=== PATIENT | male | born 1975 | race Caucasian/White ===

== ENCOUNTER 2025-06-12 20:24 | Inpatient (IN) | payer OTHER, SELFPAY ==
[2025-06-12 20:26] VITALS: BP 163/111; PULSE 126; RESP 18; TEMP 36.7; O2SAT 100; BMI 35.2
--- NOTE | 2025-06-12 20:41 | EKG12_ITS ---
Test Reason : DYSRHYTHMIA Blood Pressure : */* mmHG Vent. Rate : 90 BPM Atrial Rate : 90 BPM P-R Int : 156 ms QRS Dur : 100 ms QT Int : 364 ms P-R-T Axes : 32 -26 29 degrees QTcB Int : 445 ms Normal sinus rhythm Normal ECG Confirmed by DELFINO DE LA VEGA, ESTRELLITA ([id number]), film and video editor KAYLAN CANNON ([id number]) on 06/16/2025 8:36:25 AM Referred By: Confirmed By: ESTRELLITA SALEH MD
--- NOTE | 2025-06-12 20:42 | EDS_ITS ---
HPI History of Present Illness Chief Complaint: Abd Pain Narrative Narrative: Patient is a 49-year-old male past medical hypertension, pancreatitis secondary to gallstones status postcholecystectomy who presents to the emergency department with a chief complaint of abdominal pain and pain rating to his back. He states that his pain started around 2:00 this afternoon. He states this does somewhat feel similar to his pancreatitis. Patient denies any alcohol use he states that he used to smoke and quit smoking about 18 years ago. He states that he recently had a stress test and everything was normal. He states that he is passing some gas and states that a bowel movement prior to arrival and this was normal for him. Patient states that he is from [place] and traveled here for a deer hunting trip. He denies any history of blood clots. PFSH PFSH Medical History GERD (gastroesophageal reflux disease) HTN (hypertension) Obesity Former tobacco use Home Medications Medication Instructions Recorded Last Taken Type amlodipine 5 mg tablet 5 mg PO DAILY 06/12/25 Unkno wn History esomeprazole magnesium 40 mg 40 mg PO 06/12/25 Unknown History capsule,delayed release losartan 25 mg tablet 25 mg PO QHS 06/12/25 Unknow n History Allergy/AdvReac Type Severity Reaction Status Date / Time No Known Allergies Allergy Verified 06/12/25 20:29 Surgical History (Updated 06/12/25 @ 23:[address] Mina Cortez DO) S/P cholecystectomy Social History (Updated 06/12/25 @ 23:[address] Grecia Retana MD) household members: spouse Smoking Status: Former smoker substance use type: does not use ROS ROS ED ROS Narrative Constitutional: Denies any fevers, chills, headaches Eyes: Denies change in vision double vision blurry vision Cardiovascular: Denies chest pain Respiratory: Denies coughing wheezing shortness of breath Abdomen: Complains of abdominal pain as noted above as well as nausea denies vomiting or diarrhea : Denies any urinary symptoms Neurological: Denies any numbness, weakness, tingling Musculoskeletal: Complains of back pain as noted above Skin: Denies any rashes or lesions EXAM Physical Exam Narrative Exam Narrative: General: Patient was lying in bed and appeared to be very uncomfortable Head: Atraumatic, normocephalic Eyes: PERRL bilaterally, EOMI bilaterally, no conjunctival injection noted Neck: Soft, supple, trachea midline Cardiovascular: Regular rate and rhythm Respiratory: Clear to auscultation bilaterally Abdomen: Soft, distended in the upper portion of his abdomen no rebound or guarding noted Extremities: Radial pulses +2/4 in bilateral extremities Neurological: Following commands knew that he was at [facility] years 2024 Skin: Warm, dry, intact no rashes or lesions noted Const Vital Signs: 06/12/25 20:26 06/12/25 22:25 Temperature 98.0 F Temperature Source Temporal Pulse Rate 126 H 74 Respiratory Rate 18 18 Blood Pressure 163/111 H 122/78 H Blood Pressure Mean 128 92 Pulse Ox 100 92 Oxygen Delivery Method Room Air Room Air MDM MDM MDM Narrative Medical decision making narrative: Patient is a 49-year-old male who presents to the emergency department with a chief complaint of upper abdominal pain rating to his back. On the differential diagnose includes but not went to ACS, pneumonia, pneumothorax, pulmonary embolism, pancreatitis, aortic dissection. Once workup is obtained and reviewed he will be reevaluated. Patient states that he does not want narcotics. Patient given IV fluids and Reglan. Patient CBC reviewed and showed leukocytosis of 23,000, hemoglobin 17.8, platelet count normal 390. Sodium 140 potassium 3.7, creatinine normal 0.98. Patient AST and ALT are normal at 21 and 41 respectively lipase elevated to 2556. Patient's CTA chest reviewed and showed no evidence of pulm embolism no evidence of dissection. Patient CT on pelvis with IV contrast reviewed showed acute interstitial edematous pancreatitis centered in the pancreatic head with adjacent fat stranding noted. Reactive hyperemia of the duodenum and mild reactive antral gastritis noted. At this point time will discuss case with hospitalist for admission. Discussed case with hospitalist Dr. Retana who will accept patient for admission. Patient was notified is agreeable to plan all question concerns answered Lab Data Labs: Laboratory Results - last 24 hr 06/12/25 06/12/25 20:40 22:50 WBC 23.6 H RBC 6.69 H Hgb 17.8 H Hct 53.2 MCV 79.5 L MCH 26.6 L MCHC 33.5 RDW Std Deviation 37.[address] of [address] 13.8 Plt Count 390 MPV 9.0 Immature Gran % (Auto) 0.900 Neut % (Auto) 70.7 H Lymph % (Auto) 20.6 [place] % (Auto) 7.2 Eos % (Auto) 0.3 Baso % (Auto) 0.3 Absolute Neuts (auto) 16.7 H Absolute Lymphs (auto) 4.86 H Nucleated RBC % 0 Reactive Lymphocytes 1+ Plt Morphology Comment LARGE Sodium 140 Potassium 3.7 Chloride 102 Carbon Dioxide 24.6 Anion Gap 13 BUN 16 Creatinine 0.98 Estim Creat Clear Calc 122.22 Est GFR (MDRD) Non-Af 95 BUN/Creatinine Ratio 16.2 Glucose 98 Calcium 10.4 Total Bilirubin 0.52 AST 21 ALT 41 Alkaline Phosphatase 88 Troponin T High Sens 8 Troponin T Hi Sens 2 Hr 12 Total Protein 7.8 Albumin 5.0 Globulin 2.7 Albumin/Globulin Ratio 1.9 Lipase 2556 H Radiography Diagnostic Testing: Clinical Impression(s) from Imaging Studies Abdomen/Pelvis CT 06/12/25 21:14 IMPRESSION: Acute interstitial edematous pancreatitis centered in the pancreatic head with mild adjacent fat stranding. Reactive hyperemia of the duodenum and mild reactive antral gastritis. No evidence of pancreatic necrosis, biliary obstruction, vascular compromise, or pulmonary artery embolus. Reading Location: [facility] Chest CTA 06/12/25 21:14 IMPRESSION: Acute interstitial edematous pancreatitis centered in the pancreatic head with mild adjacent fat stranding. Reactive hyperemia of the duodenum and mild reactive antral gastritis. No evidence of pancreatic necrosis, biliary obstruction, vascular compromise, or pulmonary artery embolus. Reading Location: [facility] Discharge Plan Dx/Rx/DC Orders Clinical Impression: Acute pancreatitis, Abdominal pain, Nausea, History of cholecystectomy Disposition Disposition: Acute Care Hospital [facility]
[2025-06-12 20:49] LABS: Hematocrit 53.2 % (40-54); Hemoglobin 17.8 g/dL (13.0-16.5); Immature Granulocytes Count 0.210 X10^3/uL (0.0-0.0); Mean Corp Hgb Conc 33.5 g/dL (32-36); Mean Corpuscular Volume 79.5 fL (80-94); Mean Platelet Vol. 9.0 fl (6.2-12.0); NRBC Flagged by Analyzer 0 % (0-5); POSITIVE DIFFERENTIAL YES; Platelet Count 390 K/mm3 (150-450); RBC Distribution Width CV 13.8 % (11.6-14.6); RBC Distribution Width SD 37.9 fl (35.1-43.9); Red Blood Count 6.69 M/mm3 (4.6-6.2); White Blood Count 23.6 K/mm3 (4.4-11.0)
[2025-06-12 20:50] LABS: Differential Indicated SCAN CRITERIA MET
[2025-06-12] MEDS: 0.9% Normal Saline (1000mL) 1,000 ML 999 ML IV (20:50)
--- NOTE | 2025-06-12 21:14 | CT_ITS ---
PROCEDURE: CTA CHEST W/WO CONTRAST; ABDOMEN/PELVIS W IV CONT ONLY 06/12/2025 REASON FOR EXAM: CHEST PAIN RADIATING TO BACK; ABD PAIN, UPPER TECHNIQUE: Procedure Code: CTCTACHWW; CTABDPELIV Modality: CT Procedure: CTA CHEST W/WO CONTRAST; ABDOMEN/PELVIS W IV CONT ONLY Multiplanar Sagittal and Coronal images were obtained. CONTRAST: 22+ 21+ 23 VOLUME: 1997 mL One or more dose reduction techniques were used (e.g., Automated exposure control, adjustment of the mA and/or kV according to patient size, use of iterative reconstruction technique). RADIATION DOSE SUMMARY: CTDlvol: Isovue 370 mGy DLP: 100 mGycm FINDINGS: CTA chest: The peripheral soft tissues are unremarkable. Mild degenerative changes of the spine. Thyroid is unremarkable. The esophagus is normal in caliber. Normal caliber thoracic aorta without significant atherosclerosis. No mediastinal lymphadenopathy. Mild coronary artery calcifications. The heart is normal in size. No pulmonary artery filling defects. CT abdomen pelvis. Normal caliber abdominal aorta. No suspicious lymphadenopathy. Hypodense liver likely indicating steatosis. Surgically absent gallbladder. Relative enlargement of the pancreatic head and uncinate process relative to the body and tail. There is mild fat stranding adjacent to the pancreatic head. The pancreatic parenchyma enhances homogeneously. There is hyperenhancement of portions 1, 2, 3 and 4 of the duodenum. No wall thickening of the duodenum. Mild wall thickening of the gastric antrum adjacent to the inflammatory changes. The spleen, pancreas are unremarkable. Symmetric enhancement of the bilateral kidneys in the corticomedullary phase. No hydroureteronephrosis. The urinary bladder is unremarkable. Normal size prostate. Normal caliber large and small bowel. CT/CTA Chest W/WO Contrast IMPRESSION: Acute interstitial edematous pancreatitis centered in the pancreatic head with mild adjacent fat stranding. Reactive hyperemia of the duodenum and mild reactive antral gastritis. No evidence of pancreatic necr osis, biliary obstruction, vascular compromise, or pulmonary artery embolus. Reading Location: [facility]
--- NOTE | 2025-06-12 21:14 | CT_ITS ---
PROCEDURE: CTA CHEST W/WO CONTRAST; ABDOMEN/PELVIS W IV CONT ONLY 06/12/2025 REASON FOR EXAM: CHEST PAIN RADIATING TO BACK; ABD PAIN, UPPER TECHNIQUE: Procedure Code: CTCTACHWW; CTABDPELIV Modality: CT Procedure: CTA CHEST W/WO CONTRAST; ABDOMEN/PELVIS W IV CONT ONLY Multiplanar Sagittal and Coronal images were obtained. CONTRAST: 22+ 21+ 23 VOLUME: 1997 mL One or more dose reduction techniques were used (e.g., Automated exposure control, adjustment of the mA and/or kV according to patient size, use of iterative reconstruction technique). RADIATION DOSE SUMMARY: CTDlvol: Isovue 370 mGy DLP: 100 mGycm FINDINGS: CTA chest: The peripheral soft tissues are unremarkable. Mild degenerative changes of the spine. Thyroid is unremarkable. The esophagus is normal in caliber. Normal caliber thoracic aorta without significant atherosclerosis. No mediastinal lymphadenopathy. Mild coronary artery calcifications. The heart is normal in size. No pulmonary artery filling defects. CT abdomen pelvis. Normal caliber abdominal aorta. No suspicious lymphadenopathy. Hypodense liver likely indicating steatosis. Surgically absent gallbladder. Relative enlargement of the pancreatic head and uncinate process relative to the body and tail. There is mild fat stranding adjacent to the pancreatic head. The pancreatic parenchyma enhances homogeneously. There is hyperenhancement of portions 1, 2, 3 and 4 of the duodenum. No wall thickening of the duodenum. Mild wall thickening of the gastric antrum adjacent to the inflammatory changes. The spleen, pancreas are unremarkable. Symmetric enhancement of the bilateral kidneys in the corticomedullary phase. No hydroureteronephrosis. The urinary bladder is unremarkable. Normal size prostate. Normal caliber large and small bowel. CT/Abdomen/Pelvis W IV Cont ONLY IMPRESSION: Acute interstitial edematous pancreatitis centered in the pancreatic head with mild adjacent fat stranding. Reactive hyperemia of the duodenum and mild reactive antral gastritis. No evidence of pancreatic necr osis, biliary obstruction, vascular compromise, or pulmonary artery embolus. Reading Location: [facility]
[2025-06-12 21:22] LABS: Reactive Lymphocyte 1+
[2025-06-12 21:41] LABS: Troponin T High Sensitivity 8 ng/L (<=22)
[2025-06-12 21:44] LABS: AST(SGOT) 21 U/L (<=37); Alanine Aminotransfer ALT/SGPT 41 U/L (<=46); Albumin, Serum 5.0 g/dL (3.5-5.0); Alkaline Phosphatase 88 U/L (40-129); Anion Gap 13 (5-15); BUN 16 mg/dL (4-19); BUN/Creat Ratio 16.2 RATIO (10-20); Calcium,Total 10.4 mg/dL (7.6-11.0); Carbon Dioxide 24.6 mmol/L (21.0-32.0); Chloride 102 mmol/L (98-108); Estimated Creatinine Clearance 122.22 ml/min (50-250); Globulin 2.7 g/dL (2.2-4.2); Glucose 98 mg/dL (70-99); Potassium 3.7 mmol/L (3.3-5.1)
[2025-06-12 22:02] LABS: Lipase 2556 U/L (13-75)
[2025-06-12 22:25] VITALS: BP 122/78; PULSE 74; RESP 18; O2SAT 92
[2025-06-12 23:17] LABS: Troponin T High Sens 2 HR 12 ng/L (<=22)
--- NOTE | 2025-06-12 23:44 | PCM.HP.STD ---
HPI - General General Date of Admission: 06/12/25 Date of Service: 06/12/25 Chief Complaint: Acute abdominal pain, nausea. HPI Narrative The patient is a 49 y/o M currently in [place] for hunting normally living in [facility] w/ PMHx: Former tobacco use, HTN, GERD, Obesity, history of pancreatitis secondary to choledocholithiasis status post cholecystectomy who presents to the [facility] ED on 06/12/2025 with persistent epigastric abdominal pain with radiation towards back starting approximately 2 PM in the afternoon similar to previous episodes of pancreatitis with normal bowel movements with associated nausea without any emesis not abating prompting eventual ED evaluation. He notes his abdominal pain is dull aching, throbbing and intermittent sharp stabbing rating it 8-9 out of 10 in severity prior to ED pain medication, currently 6-7 out of 10 in severity. Workup in the ED included T98, heart rate initially 126, BP 163/111, respiratory rate 18, 100% on room air with most recent repeat vitals heart rate 74, BP 122/78, respiratory rate 18, 92% on room air, chest CTA and CT abdomen and pelvis with acute interstitial edematous pancreatitis centered in the pancreatic head with mild adjacent fat stranding, reactive hyperemia of the duodenum and mild reactive antral gastritis, no evidence of any pulmonary artery embolus CBC with WC 23.6, hemoglobin 17.8, platelets 390 with left shift and lymphocytosis, CMP not marked appearing aside from lipase 2556, Initial troponin 8 with repeat delta 12. In the ED patient administered Zofran 4 mg IV x 1, Reglan 10 mg IV x 1, morphine 4 mg IV x 2, 1 L normal saline. PFSH Medical History GERD (gastroesophageal reflux disease) HTN (hypertension) Obesity Former tobacco use Home Medications Medication Instructions Recorded Last Taken Type amlodipine 5 mg tablet 5 mg PO DAILY 06/12/25 Unknown History esomeprazole magnesium 40 mg 40 mg PO DAILY STOMACH 06/12/25 Unknown History capsule,delayed release losartan 25 mg tablet 25 mg PO QHS 06/12/25 Unknown History Allergy/AdvReac Type Severity Reaction Status Date / Time No Known Allergies Allergy Verified 06/12/25 20:29 Family History (Updated 06/13/25 @ 00:[address] Grecia Retana MD) Father CAD (coronary artery disease) Heart disease Hypertension S/P CABG x 4 Mother Rheumatoid arthritis Surgical History S/P cholecystectomy Social History (Updated 06/13/25 @ 00:[address] Grecia Retana MD) household members: spouse Smoking Status: Former smoker alcohol intake: former details: Prior intake of 5-6/drinks max per week, stopped any EtOH intake 3.5 yrs substance use type: does not use ROS ROS Narrative Admission Review of Systems: CONSTITUTIONAL: No weight loss, fever, chills, + weakness or fatigue. HEENT: Eyes: No visual loss, blurred vision, double vision or yellow sclerae. Ears, Nose, Throat: No hearing loss, sneezing, congestion, runny nose or sore throat. SKIN: No rash or itching, lesions, wounds. CARDIOVASCULAR: No chest pain, chest pressure or chest discomfort, palpitations, edema, orthopnea, syncopal events. RESPIRATORY: No shortness of breath, cough or sputum, wheezing, hemoptysis. GASTROINTESTINAL: + anorexia, nausea, abdominal pain. No emesis, constipation, diarrhea, melena, BRBPR. GENITOURINARY: No dysuria, frequency, urgency or retention. NEUROLOGICAL: No headache, dizziness, syncope, paralysis, ataxia, numbness or tingling in the extremities, focal weakness, change in bowel or bladder control, seizure. MUSCULOSKELETAL: + muscle, back pain, joint pain or stiffness. HEMATOLOGIC: No anemia, bleeding or bruising. LYMPHATICS: No enlarged nodes. No history of splenectomy. PSYCHIATRIC: No history of depression or anxiety. ENDOCRINOLOGIC: No reports of sweating, cold or heat intolerance. No polyuria or polydipsia. ALLERGIES: No history of asthma, hives, eczema or rhinitis. Vital Signs Vital Signs Vital Signs: 06/12/25 20:26 06/12/25 22:25 Temperature 98.0 F Temperature Source Temporal Pulse Rate 126 H 74 Respiratory Rate 18 18 Blood Pressure 163/111 H 122/78 H Blood Pressure Mean 128 92 Pulse Ox 100 92 Oxygen Delivery Method Room Air Room Air Weight Weight: 260 lb Body Mass Index (BMI) 35.2 Physical Exam Narrative Physical Examination: General: Awake, alert, oriented x 3 and cooperative, seated upright in the ED bed, fatigued, uncomfortable appearing. Skin: Normal color, normal turgor, no icterus, no cyanosis except occasional abrasion, stage ecchymoses. HEENT: AT/NC, EOMI, PERRLA, dry MM, no carotid bruits or JVD noted. Lungs: CTA bilaterally, moderate effort, mild decrease BL bases, no rales, ronchi or wheezing. Heart: Regular rate and rhythm; no gallop, rub audible. Abdomen: Soft, obese, significant bilateral upper quadrant and epigastric tenderness to palpation with voluntary guarding, no obvious distention, mildly hyperactive BS, difficult to assess HSM given pain with evaluation. Extremities: No cyanosis, clubbing, or edema. Neurological: Patient awake, alert, oriented as noted, cognitive function intact; pupils equally reactive to light and accommodation, cranial nerves grossly normal, moving all 4 extremities, no focal deficits, strength moderately globally decreased secondary to acute presentation. Psychiatric: Affect appears uncomfortable, no acute evidence of depressive or anxiety feelings. Results Lab / Micro Data 06/12/25 20:40 06/12/25 20:40 Labs: Laboratory Results - last 24 hr 06/12/25 20:40: WBC 23.6 H, RBC 6.69 H, Hgb 17.8 H, Hct 53.2, MCV 79.5 L, MCH 26.6 L, MCHC 33.5, RDW Std Deviation 37.9, RDW Coeff of Ave 13.8, Plt Count 390, MPV 9.0, Immature Gran % (Auto) 0.900, Neut % (Auto) 70.7 H, Lymph % (Auto) 20.6, [place] % (Auto) 7.2, Eos % (Auto) 0.3, Baso % (Auto) 0.3, Absolute Neuts (auto) 16.7 H, Absolute Lymphs (auto) 4.86 H, Nucleated RBC % 0, Reactive Lymphocytes 1+, Plt Morphology Comment LARGE, Sodium 140, Potassium 3.7, Chloride 102, Carbon Dioxide 24.6, Anion Gap 13, BUN 16, Creatinine 0.98, Estim Creat Clear Calc 122.22, Est GFR (MDRD) Non-Af 95, BUN/Creatinine Ratio 16.2, Glucose 98, Calcium 10.4, Total Bilirubin 0.52, AST 21, ALT 41, Alkaline Phosphatase 88, Troponin T High Sens 8, Total Protein 7.8, Albumin 5.0, Globulin 2.7, Albumin/Globulin Ratio 1.9, Lipase 2556 H 11/13/25 22:50: Troponin T Hi Sens 2 Hr 12 Imaging Radiology Impression Abdomen/Pelvis CT 06/12/25 21:14 IMPRESSION: Acute interstitial edematous pancreatitis centered in the pancreatic head with mild adjacent fat stranding. Reactive hyperemia of the duodenum and mild reactive antral gastritis. No evidence of pancreatic necrosis, biliary obstruction, vascular compromise, or pulmonary artery embolus. Reading Location: [facility] Chest CTA 06/12/25 21:14 IMPRESSION: Acute interstitial edematous pancreatitis centered in the pancreatic head with mild adjacent fat stranding. Reactive hyperemia of the duodenum and mild reactive antral gastritis. No evidence of pancreatic necrosis, biliary obstruction, vascular compromise, or pulmonary artery embolus. Reading Location: [facility] Assessment & Plan Assessment/Plan (1) Acute pancreatitis: PLAN: Plan The patient is a 49 y/o M w/ PMHx: Former tobacco use, HTN, GERD, Obesity, history of pancreatitis secondary to choledocholithiasis status post cholecystectomy who presents to the [facility] ED on 06/12/2025 with persistent epigastric abdominal pain with radiation towards back starting approximately 2 PM in the afternoon similar to previous episodes of pancreatitis with normal bowel movements with associated nausea without any emesis not abating prompting eventual ED evaluation. #1. Acute pancreatitis with reactive hyperemia of the duodenum and mild reactive antral gastritis w/ abdominal pain, nausea: Will admit to medical surgical floor, maintain on aggressive IVFs, initiate n.p.o. and advance to clears once clinically improving, maintain on IV PPI, will initiate and maintain on scheduled IV Toradol, IV/po pain control, trend lipase, CMP, obtain EtOH level (denies intake, stopped ~ 3.5 yrs prior with only moderate intake prior to this), obtain FLP. #2. Hypertension: Continue home regimen including amlodipine, losartan, PRN hydralazine. #3. Obesity: Weight loss and lifestyle changes encouraged. #4. Former tobacco use: Encourage continued tobacco cessation. #5. GERD: Will maintain on IV PPI. #6. DVT prophylaxis: Lovenox. Charges/Coding Visit Charges Inpatient E&M: 81887 Init Hosp L3
[2025-06-12 23:54] VITALS: BP 118/81; PULSE 74; RESP 18; TEMP 36.7; O2SAT 97
[2025-06-12 23:56] VITALS: PULSE 16; RESP 16
[2025-06-13] VITALS: BP 121/84; PULSE 75; RESP 16; O2SAT 92
[2025-06-13 00:20] VITALS: BMI 34.5
[2025-06-13 00:32] VITALS: BP 131/96; PULSE 89; RESP 16; TEMP 36.5; O2SAT 95
[2025-06-13] MEDS: 0.9% Normal Saline (1000mL) 1,000 ML 999 ML IV (01:00)
[2025-06-13] MEDS: Pantoprazole Sodium 40 MG in 0.9% Normal Saline (100mL MB+) 100 ML 330 MG IV ×3 (01:13→22:08)
[2025-06-13 01:17] LABS: Troponin T High Sens 4 HR 8 ng/L (<=22)
[2025-06-13] MEDS: Senna/Docusate Sodium 1 Tablet 2 TABLET PO ×2 (01:19→22:08)
[2025-06-13 01:21] LABS: Alcohol, Blood (Medical)-Serum < 10.1 mg/dL (<=10.0)
[2025-06-13] MEDS: Ketorolac 30 MG/ML Syringe IV ×4 (01:21→22:08)
[2025-06-13] MEDS: 0.9% Normal Saline (1000mL) 1,000 ML 150 ML IV ×2 (02:27→09:14)
[2025-06-13 05:40] VITALS: BMI 36.6
[2025-06-13 07:25] LABS: Hematocrit 40.3 % (40-54); Hemoglobin 13.6 g/dL (13.0-16.5); Immature Granulocytes Count 0.100 X10^3/uL (0.0-0.0); Mean Corp Hgb Conc 33.7 g/dL (32-36); Mean Corpuscular Volume 80.0 fL (80-94); Mean Platelet Vol. 9.1 fl (6.2-12.0); NRBC Flagged by Analyzer 0 % (0-5); Platelet Count 258 K/mm3 (150-450); RBC Distribution Width CV 13.3 % (11.6-14.6); RBC Distribution Width SD 38.7 fl (35.1-43.9); Red Blood Count 5.04 M/mm3 (4.6-6.2); White Blood Count 12.5 K/mm3 (4.4-11.0)
[2025-06-13 07:43] VITALS: BP 124/73; PULSE 62; RESP 16; TEMP 36.7; O2SAT 94
[2025-06-13 08:03] LABS: AST(SGOT) 17 U/L (<=37); Alanine Aminotransfer ALT/SGPT 24 U/L (<=46); Albumin, Serum 3.7 g/dL (3.5-5.0); Alkaline Phosphatase 62 U/L (40-129); Anion Gap 7 (5-15); BUN 16 mg/dL (4-19); BUN/Creat Ratio 19.4 RATIO (10-20); Calcium,Total 8.3 mg/dL (7.6-11.0); Carbon Dioxide 23.0 mmol/L (21.0-32.0); Chloride 107 mmol/L (98-108); Cholesterol 149 mg/dL (<=200); Estimated Creatinine Clearance 147.30 ml/min (50-250); Globulin 2.2 g/dL (2.2-4.2); Glucose 111 mg/dL (70-99); Lipase 298 U/L (13-75); Low Density Lipoprotein Calc. 93 mg/dL; Potassium 4.2 mmol/L (3.3-5.1); Triglycerides 92 mg/dL; Very Low Density Lipoprotein 18 mg/dL (5-40); cholesterol:hdl ratio screen 3.87
[2025-06-13 08:10] VITALS: O2SAT 97
--- NOTE | 2025-06-13 10:08 | CASEMGMT ---
Dx:acute pancreatitis LACE:1 6-Clicks:24 Medical record reviewed and patient evaluated for identification of discharge planning needs. Based on this review, at this time criteria are not present to indicate a need for discharge planning. Will remain available to assist with discharge planning needs as identified or requested.
--- NOTE | 2025-06-13 11:36 | MRI_ITS ---
PROCEDURE: MRCP ABDOMEN WITHOUT CONTRAST 06/13/2025 REASON FOR EXAM: ACUTE PANCREATITIS Abdominal pain TECHNIQUE: Procedure Code: MRIMRCP Modality: MR Procedure: MRCP ABDOMEN WITHOUT CONTRAST Multiplanar and multisequence images were obtained. COMPARISON: 12 June 2025 FINDINGS: Pancreas: Mild interstitial edema of the pancreatic head to a lesser extent compared to the recent CT. No evidence of pancreatic necrosis or pseudocyst. No pancreatic ductal dilatation. Biliary: No intrahepatic or extrahepatic biliary dilatation. Ascites: No ascites. Lymph Nodes: No abdominal lymphadenopathy. Other: Several too small to characterize scattered hepatic T2 hyperintensities. Mild duodenal wall edema, likely reactive from pancreatitis. MRI/MRCP Abdomen without Contrast IMPRESSION: Findings suggesting acute interstitial pancreatitis of the pancreatic head with likely reactive duodenitis. No findings to suggest pancreatic necrosis or biliary dilatation. Reading Location: [id number]
[2025-06-13 13:31] VITALS: BP 130/78; PULSE 68; RESP 16; TEMP 36.5; O2SAT 94
--- NOTE | 2025-06-13 16:44 | PN_ITS ---
Subjective Subjective Patient seen and examined with his nurse by his bedside. He still complain of some abdominal pain. He denied any nausea vomiting or any other symptoms. He has been managed for acute pancreatitis. Review of systems otherwise negative. Objective Data Objective Data Vital Signs: Vital Signs Temp Pulse Resp BP Pulse Ox O2 Del Method 97.7 F L 68 16 130/78 H 94 Room Air 06/13/25 13:31 06/13/25 13:31 06/13/25 13:31 06/13/25 13:31 06/13/25 13:31 06/13/25 13:31 Oxygen Delivery Method Room Air Weight: 270 lb 11.642 oz Body Mass Index (BMI) 36.6 Intake & Output: Intake and Output for Last 24 Hours 06/11/25 06/12/25 06/13/25 23:59 23:59 23:59 Intake Total 1000 / 1000 2230 / 2230 Balance 1000 / 1000 2230 / 2230 Lab / Micro Data 06/13/25 07:06 06/13/25 07:06 Labs: Laboratory Results - last 24 hr 06/12/25 20:40: WBC 23.6 H, RBC 6.69 H, Hgb 17.8 H, Hct 53.2, MCV 79.5 L, MCH 26.6 L, MCHC 33.5, RDW Std Deviation 37.9, RDW Coeff of Ave 13.8, Plt Count 390, MPV 9.0, Immature Gran % (Auto) 0.900, Neut % (Auto) 70.7 H, Lymph % (Auto) 20.6, [place] % (Auto) 7.2, Eos % (Auto) 0.3, Baso % (Auto) 0.3, Absolute Neuts (auto) 16.7 H, Absolute Lymphs (auto) 4.86 H, Nucleated RBC % 0, Reactive Lymphocytes 1+, Plt Morphology Comment LARGE, Sodium 140, Potassium 3.7, Chloride 102, Carbon Dioxide 24.6, Anion Gap 13, BUN 16, Creatinine 0.98, Estim Creat Clear Calc 122.22, Est GFR (MDRD) Non-Af 95, BUN/Creatinine Ratio 16.2, Glucose 98, Calcium 10.4, Total Bilirubin 0.52, AST 21, ALT 41, Alkaline Phosphatase 88, Troponin T High Sens 8, Total Protein 7.8, Albumin 5.0, Globulin 2.7, Albumin/Globulin Ratio 1.9, Lipase 2556 H 06/12/25 22:50: Troponin T Hi Sens 2 Hr 12 06/13/25 00:47: Troponin T Hi Sens 4Hr 8, Ethyl Alcohol < 10.1 06/13/25 07:06: WBC 12.5 H, RBC 5.04, Hgb 13.6, Hct 40.3, MCV 80.0, MCH 27.0, MCHC 33.7, RDW Std Deviation 38.7, RDW Coeff of Ave 13.3, Plt Count 258, MPV 9.1, Immature Gran % (Auto) 0.800, Neut % (Auto) 71.4 H, Lymph % (Auto) 19.8, [place] % (Auto) 7.7, Eos % (Auto) 0.1, Baso % (Auto) 0.2, Absolute Neuts (auto) 8.9 H, Absolute Lymphs (auto) 2.47, Nucleated RBC % 0, Sodium 137, Potassium 4.2, Chloride 107, Carbon Dioxide 23.0, Anion Gap 7, BUN 16, Creatinine 0.83, Estim Creat Clear Calc 147.30, Est GFR (MDRD) Non-Af 108, BUN/Creatinine Ratio 19.4, Glucose 111 H, Calcium 8.3, Total Bilirubin 0.74, AST 17, ALT 24, Alkaline Phosphatase 62, Total Protein 5.9, Albumin 3.7, Globulin 2.2, Albumin/Globulin Ratio 1.7, Triglycerides 92, Cholesterol 149, LDL Cholesterol, Calc 93, VLDL Cholesterol 18, HDL Cholesterol 39 L, Cholesterol/HDL Ratio 3.87, Lipase 298 H Radiography Diagnostic Testing: Radiology Impression Abdomen/Pelvis CT 06/12/25 21:14 IMPRESSION: Acute interstitial edematous pancreatitis centered in the pancreatic head with mild adjacent fat stranding. Reactive hyperemia of the duodenum and mild reactive antral gastritis. No evidence of pancreatic necrosis, biliary obstruction, vascular compromise, or pulmonary artery embolus. Reading Location: [facility] Chest CTA 06/12/25 21:14 IMPRESSION: Acute interstitial edematous pancreatitis centered in the pancreatic head with mild adjacent fat stranding. Reactive hyperemia of the duodenum and mild reactive antral gastritis. No evidence of pancreatic necrosis, biliary obstruction, vascular compromise, or pulmonary artery embolus. Reading Location: [facility] Physical Exam Const alert, oriented x3 and no apparent distress General Appearance: cooperative HEENT normocephalic, head/scalp atraumatic, moist oral mucous membranes and oropharynx normal Eyes EOMs intact bilaterally Neck supple and no JVD Lymph Lymphatic: no lymphedema noted Resp normal respiratory effort, normal air movement and clear to auscultation bilaterally Cardio regular rate, regular rhythm, S1 normal heart sound, S2 normal heart sound and no murmurs GI normal to inspection, nondistended, normoactive bowel sounds GI Narrative: moderate epigastric tenderness, no guarding or rebound tenderness. Extremity normal capillary refill, no clubbing, cyanosis or edema and no calf tenderness General Extremity: no tenderness to palpation of joints or extremities Skin General Skin Exam: no breakdown Neuro CN's II-XII intact bilaterally and no focal motor deficits Motor Exam: strength 5/5 throughout and general weakness Psych thought process normal, cooperative and affect normal Appearance: appropriate Assessment & Plan Assessment/Plan (1) Abdominal pain: (2) Acute pancreatitis: PLAN: Plan #Acute pancreatitis * admitted with a complaint of abdominal pain and found to have acute pancreatitis per CT * He has had Crys cystectomy due to previous pancreatitis. * Currently NPO. Hydrate aggressively with IV fluids. On IV pain meds. Advance to clears and advance diet slowly as tolerated. * MRCP ordered to evaluate for choledocholithiasis. * Lipase was 2556 on admission and is now down to 298. * #Leukocytosis: WBC of 23.5 on admission and is now down to 12.5. This is likely reactive from the pancreatitis. No clear evidence of acute infection. Will hold off on antibiotics for now. #Hypertension: On amlodipine and losartan. IV hydralazine as needed #Class II obesity: BMI is 36.7. Complicates acute care, expected recovery and prognosis. #GERD: on PPI DVT prophylaxis: lovenox Charges/Coding Visit Charges Inpatient E&M: 26921 Subs Hosp L2
[2025-06-13] MEDS: 0.9% Normal Saline (1000mL) 1,000 ML 125 ML IV (17:50)
[2025-06-13 20:00] VITALS: BP 133/86; PULSE 80; RESP 16; TEMP 36.6; O2SAT 97
[2025-06-14 02:00] VITALS: BP 126/75; PULSE 83; RESP 16; TEMP 36.6; O2SAT 96
[2025-06-14] MEDS: 0.9% Normal Saline (1000mL) 1,000 ML 125 ML IV (02:23)
[2025-06-14 04:27] LABS: Hematocrit 39.9 % (40-54); Hemoglobin 13.6 g/dL (13.0-16.5); Immature Granulocytes Count 0.060 X10^3/uL (0.0-0.0); Mean Corp Hgb Conc 34.1 g/dL (32-36); Mean Corpuscular Volume 80.8 fL (80-94); Mean Platelet Vol. 9.2 fl (6.2-12.0); NRBC Flagged by Analyzer 0 % (0-5); Platelet Count 220 K/mm3 (150-450); RBC Distribution Width CV 12.9 % (11.6-14.6); RBC Distribution Width SD 37.4 fl (35.1-43.9); Red Blood Count 4.94 M/mm3 (4.6-6.2); White Blood Count 11.9 K/mm3 (4.4-11.0)
[2025-06-14 05:06] LABS: Anion Gap 9 (5-15); BUN 11 mg/dL (4-19); BUN/Creat Ratio 12.9 RATIO (10-20); Calcium,Total 8.8 mg/dL (7.6-11.0); Carbon Dioxide 22.9 mmol/L (21.0-32.0); Chloride 106 mmol/L (98-108); Estimated Creatinine Clearance 143.83 ml/min (50-250); Glucose 91 mg/dL (70-99); Potassium 4.1 mmol/L (3.3-5.1)
[2025-06-14 05:49] VITALS: BMI 36.6
[2025-06-14] MEDS: Ketorolac 30 MG/ML Syringe IV (06:22)
[2025-06-14 08:25] VITALS: BP 142/88; PULSE 94; RESP 17; TEMP 36.5; O2SAT 98
[2025-06-14] MEDS: Pantoprazole Sodium 40 MG in 0.9% Normal Saline (100mL MB+) 100 ML 330 MG IV ×2 (09:25→20:58)
--- NOTE | 2025-06-14 11:18 | PN_ITS ---
Subjective Subjective Patient seen and examined. The abdominal pain has improved today and he is feeling better. Review of systems is otherwise negative. He has remained hemodynamically stable. Objective Data Objective Data Vital Signs: Vital Signs Temp Pulse Resp BP Pulse Ox O2 Del Method 97.7 F L 94 17 142/88 H 98 Room Air 06/14/25 08:25 06/14/25 08:25 06/14/25 08:25 06/14/25 08:25 06/14/25 08:25 06/14/25 08:34 Oxygen Delivery Method Room Air Weight: 270 lb 4.587 oz Body Mass Index (BMI) 36.6 Intake & Output: Intake and Output for Last 24 Hours 06/12/25 06/13/25 06/14/25 23:59 23:59 23:59 Intake Total 1000 / 1000 3350 / 3350 1999 Balance 1000 / 1000 3350 / 3350 1999 Lab / Micro Data 06/14/25 03:44 06/14/25 03:44 Labs: Laboratory Results - last 24 hr 06/14/25 03:44: WBC 11.9 H, RBC 4.94, Hgb 13.6, Hct 39.9 L, MCV 80.8, MCH 27.5, MCHC 34.1, RDW Std Deviation 37.4, RDW Coeff of Ave 12.9, Plt Count 220, MPV 9.2, Immature Gran % (Auto) 0.500, Neut % (Auto) 65.3, Lymph % (Auto) 24.5, [place] % (Auto) 8.7, Eos % (Auto) 0.8, Baso % (Auto) 0.2, Absolute Neuts (auto) 7.8 H, Absolute Lymphs (auto) 2.93, Nucleated RBC % 0, Sodium 138, Potassium 4.1, Chloride 106, Carbon Dioxide 22.9, Anion Gap 9, BUN 11, Creatinine 0.85, Estim Creat Clear Calc 143.83, Est GFR (MDRD) Non-Af 107, BUN/Creatinine Ratio 12.9, Glucose 91, Calcium 8.8 Radiography Diagnostic Testing: Radiology Impression MRCP 06/13/25 11:36 IMPRESSION: Findings suggesting acute interstitial pancreatitis of the pancreatic head with likely reactive duodenitis. No findings to suggest pancreatic necrosis or biliary dilatation. Reading Location: [facility] Physical Exam Const alert, oriented x3 and no apparent distress General Appearance: cooperative HEENT normocephalic, head/scalp atraumatic, moist oral mucous membranes and oropharynx normal Eyes EOMs intact bilaterally Neck supple and no JVD Lymph Lymphatic: no lymphedema noted Resp normal respiratory effort, normal air movement and clear to auscultation bilaterally Cardio regular rate, regular rhythm, S1 normal heart sound, S2 normal heart sound and no murmurs GI normal to inspection, nondistended, normoactive bowel sounds GI Narrative: minimal epigastric tenderness, no guarding or rebound tenderness. Extremity normal capillary refill, no clubbing, cyanosis or edema and no calf tenderness General Extremity: no tenderness to palpation of joints or extremities Skin General Skin Exam: no breakdown Neuro CN's II-XII intact bilaterally and no focal motor deficits Motor Exam: strength 5/5 throughout and general weakness Psych thought process normal, cooperative and affect normal Appearance: appropriate Assessment & Plan Assessment/Plan (1) Abdominal pain: (2) Acute pancreatitis: PLAN: Plan #Acute pancreatitis * admitted with a complaint of abdominal pain and found to have acute pancreatitis per CT * He has had a history of lap cystectomy due to previous pancreatitis peviously * Currently NPO. Hydrate aggressively with IV fluids. On IV pain meds. Advance to clears and advance diet slowly as tolerated. * MRCP ordered to evaluate for choledocholithiasis. * Lipase was 2556 on admission and is now down to 298. * #Leukocytosis: * WBC of 23.5 on admission and is now down to 11.9. * This is likely reactive from the pancreatitis. * No clear evidence of acute infection. * Will hold off on antibiotics for now. * resolving #Hypertension: On amlodipine and losartan. IV hydralazine as needed #Class II obesity: BMI is 36.7. Complicates acute care, expected recovery and prognosis. #GERD: on PPI DVT prophylaxis: lovenox Charges/Coding Visit Charges Inpatient E&M: 97611 Subs Hosp L2
--- NOTE | 2025-06-14 13:17 | NURSING ---
Pt asked this RN if it would be possible to take his home esomeprazole magnesium. IV protonix is currently ordered for pt. Pt has chronic reflux and has tried protonix in the past, and it "did not work well" for him. This RN contacted Dr Levine with pt's request. Dr Levine said it was OK to get corine of pharmacy to switch protonix to esomeprazole. Lance in pharmacy told this RN that pantoprazole and esomeprazole are equivalent and are interchanged for each other.
[2025-06-14 14:02] VITALS: BP 142/89; PULSE 106; RESP 17; TEMP 36.6; O2SAT 97
[2025-06-14 20:46] VITALS: BP 149/89; PULSE 85; RESP 18; TEMP 36.9; O2SAT 97
[2025-06-14] MEDS: 0.9% Saline Lock 10 ML Syringe IV (20:53)
[2025-06-15 02:08] VITALS: BP 113/84; PULSE 93; RESP 18; TEMP 36.8; O2SAT 97
[2025-06-15 06:59] LABS: Hematocrit 41.8 % (40-54); Hemoglobin 14.2 g/dL (13.0-16.5); Immature Granulocytes Count 0.060 X10^3/uL (0.0-0.0); Mean Corp Hgb Conc 34.0 g/dL (32-36); Mean Corpuscular Volume 79.5 fL (80-94); Mean Platelet Vol. 9.2 fl (6.2-12.0); NRBC Flagged by Analyzer 0 % (0-5); Platelet Count 244 K/mm3 (150-450); RBC Distribution Width CV 12.7 % (11.6-14.6); RBC Distribution Width SD 36.0 fl (35.1-43.9); Red Blood Count 5.26 M/mm3 (4.6-6.2); White Blood Count 13.1 K/mm3 (4.4-11.0)
[2025-06-15 08:05] VITALS: BP 131/98; PULSE 80; RESP 18; TEMP 36.6; O2SAT 100
[2025-06-15 08:11] LABS: Anion Gap 9 (5-15); BUN 10 mg/dL (4-19); BUN/Creat Ratio 11.3 RATIO (10-20); Calcium,Total 9.3 mg/dL (7.6-11.0); Carbon Dioxide 23.8 mmol/L (21.0-32.0); Chloride 105 mmol/L (98-108); Estimated Creatinine Clearance 140.41 ml/min (50-250); Glucose 97 mg/dL (70-99); Potassium 3.9 mmol/L (3.3-5.1)
--- NOTE | 2025-06-15 08:26 | PCM.DC ---
Discharge Instructions DC O2, CPAP, BIPAP needs Home O2 Discharge instructions: No Dressing / Incision Discharge Activity: Return to Normal Activity Weight Bearing Status: Weight bearing as tolerated Dressing / Incision Call your doctor if you observe: Fever of 101 or Higher, Shortness of breath, Dizziness, Chest pain and Uncontrolled pain Follow Up Care Test Results: Test results from this visit will be discussed in further detail at your follow-up appointment, if applicable. Discharge Plan Admission Admit Date/Time: 06/12/25 23:41 Primary Reason for Your Visit: acute pancreatitis Attending Provider: Tamara Levine Primary Care Provider: JENNI HERNANDEZ Consulting Providers: Grecia Retana Instructions Patient Instructions: Pancreatitis Acute Dc Additional Instructions / Restrictions: follow up with your justowriter operator in [facility] within 1-2 weeks upon returning home Discharge Orders/Prescriptions Prescriptions: Continued amlodipine 5 mg tablet 5 mg PO DAILY esomeprazole magnesium 40 mg capsule,delayed release(DR/EC) 40 mg PO DAILY losartan 25 mg tablet 25 mg PO QHS Referrals / Follow Up: JENNI HERNANDEZ [Other] - Within 1 Week NOT,DEFINED [Non-Staff, None] Disposition Disposition (needs filled in before D/C Order can be placed): Home, Self Care
--- NOTE | 2025-06-15 08:27 | DS.PCM_ITS ---
Providers Date of Admission: 06/12/25 Date of Discharge: 06/15/25 Primary Care Physician: JENNI HERNANDEZ Reason For Visit: ACUTE PANCREATITIS Diagnosis Discharge Diagnosis (1) Abdominal pain: Status: Acute Code(s): R10.9 - Unspecified abdominal pain (2) Acute pancreatitis: Status: Acute Code(s): K85.90 - Acute pancreatitis without necrosis or infection, unspecified Plan #Acute pancreatitis * admitted with a complaint of abdominal pain and found to have acute pancreatitis per CT * He has had a history of lap cystectomy due to previous pancreatitis peviously * Currently NPO. Hydrate aggressively with IV fluids. On IV pain meds. Advance to clears and advance diet slowly as tolerated. * MRCP ordered to evaluate for choledocholithiasis. * Lipase was 2556 on admission and is now down to 298. * #Leukocytosis: * WBC of 23.5 on admission and is now down to 11.9. * This is likely reactive from the pancreatitis. * No clear evidence of acute infection. * Will hold off on antibiotics for now. * resolving #Hypertension: On amlodipine and losartan. IV hydralazine as needed #Class II obesity: BMI is 36.7. Complicates acute care, expected recovery and prognosis. #GERD: on PPI DVT prophylaxis: lovenox Medications at Discharge Home Medications amlodipine 5 mg tablet 5 mg PO DAILY 06/12/25 esomeprazole magnesium 40 mg capsule,delayed release 40 mg PO DAILY STOMACH 06/12/25 losartan 25 mg tablet 25 mg PO QHS 06/12/25 Hospital Course Operations None Procedures None Summary of Care Provided Minutes Spent on Discharge: 37 Hospital Course: Patient is a 49-year-old male with past medical history as outlined who was visiting [place] from [facility] for hunting. He had a history of pancreatitis in the past and had had cholecystectomy. He was admitted on 06/12/2025 with complaint of persistent epigastric abdominal pain which radiated to his back and started around 2 PM on the afternoon of admission. He felt like his prior episodes of pancreatitis. He had associated nausea but no vomiting so he decided to come into the ED. On admission CT a of the chest showed no acute cardiopulmonary pathology and CT of the abdomen and pelvis showed acute interstitial edematous pancreatitis mainly in the pancreatic head with mild adjacent fat stranding and reactive hyperemia of the duodenum and mild reactive antral gastritis. Labs were remarkable for lipase of 2556. WBC was 23.6 therefore felt to be reactive. He was admitted and managed for acute pancreatitis. Was kept n.p.o. and hydrated aggressively with IV fluids and placed on IV pain medication. He had MRCP done which did not show any evidence of choledocholithiasis and again showed evidence of the acute pancreatitis mainly in the pancreatic head. The abdominal pain resolved and he was able to tolerate a diet. He was discharged home on 06/15/2025 and patient said he had a public stenographer at home in [facility] that he was going to follow-up with. He was also counseled to follow-up with his PCP within 1 to 2 weeks. Patient seen and examined prior to discharge. He had no active complaints and had an uneventful night. Review of systems otherwise negative. Labs and vitals reviewed. Home medication reviewed and reconciled. Patient was offered a prescription for pain meds but refused this as he said he had only taken Tylenol the day before and had not needed any pain meds since. Labs and vitals reviewed. Home medication regimen reconciled. Physical Exam Const alert, oriented x3 and no apparent distress General Appearance: cooperative and comfortable HEENT normocephalic, head/scalp atraumatic, hearing grossly normal bilaterally, moist oral mucous membranes and oropharynx normal Mouth: oral and palatal mucosa normal Eyes EOMs intact bilaterally and conjunctivae normal Neck supple and no JVD Lymph Lymphatic: no lymphedema noted Resp normal respiratory effort, normal air movement and clear to auscultation bilaterally Cardio regular rate, regular rhythm, S1 normal heart sound, S2 normal heart sound and no murmurs GI normal to inspection, nondistended, normoactive bowel sounds, soft to palpation, non-tender and non-distended Extremity normal to inspection, full ROM, normal capillary refill, no clubbing, cyanosis or edema and no calf tenderness General Extremity: no tenderness to palpation of joints or extremities Skin no rashes or lesions noted General Skin Exam: no breakdown Neuro oriented x3, CN's II-XII intact bilaterally, moves all extremities and no focal motor deficits Sensorium / Orientation: awake and alert Motor Exam: strength 5/5 throughout and general weakness Psych thought process normal, cooperative and affect normal Appearance: appropriate Weight / BMI Weight Weight: 270 lb 4.587 oz Body Mass Index (BMI) 36.6 ABG / Lab / Microbiology Data 06/15/25 06:03 06/15/25 06:03 Laboratory: Laboratory Results - last 24 hr 06/15/25 06:03: WBC 13.1 H, RBC 5.26, Hgb 14.2, Hct 41.8, MCV 79.5 L, MCH 27.0, MCHC 34.0, RDW Std Deviation 36.0, RDW Coeff of Ave 12.7, Plt Count 244, MPV 9.2, Immature Gran % (Auto) 0.500, Neut % (Auto) 67.3, Lymph % (Auto) 22.2, [place] % (Auto) 8.7, Eos % (Auto) 1.1, Baso % (Auto) 0.2, Absolute Neuts (auto) 8.8 H, Absolute Lymphs (auto) 2.90, Nucleated RBC % 0, Sodium 138, Potassium 3.9, Chloride 105, Carbon Dioxide 23.8, Anion Gap 9, BUN 10, Creatinine 0.87, Estim Creat Clear Calc 140.41, Est GFR (MDRD) Non-Af 106, BUN/Creatinine Ratio 11.3, Glucose 97, Calcium 9.3 Radiography Diagnostic Testing: Radiology Impression MRCP 06/13/25 11:36 IMPRESSION: Findings suggesting acute interstitial pancreatitis of the pancreatic head with likely reactive duodenitis. No findings to suggest pancreatic necrosis or biliary dilatation. Reading Location: [id number] D/C Instructions Discharge Activity: Return to Normal Activity Weight Bearing Status: Weight bearing as tolerated Call your doctor if you observe: Fever of 101 or Higher, Shortness of breath, Dizziness, Chest pain and Uncontrolled pain DC O2, CPAP, BIPAP Needs Home O2 Discharge instructions: No DC home with Oxygen: No Meaningful Use Info Meaningful Use Meaningful Use Diagnoses (Choose all that apply): None applicable Discharge Plan Admission Admit Date/Time: 06/12/25 23:41 Primary Reason for Your Visit: acute pancreatitis Attending Provider: Tamara Levine Primary Care Provider: JENNI HERNANDEZ Consulting Providers: Grecia Retana Instructions Patient Instructions: Pancreatitis Acute Dc Additional Instructions / Restrictions: follow up with your public stenographer in [facility] within 1-2 weeks upon returning home Discharge Orders/Prescriptions Prescriptions: Continued amlodipine 5 mg tablet 5 mg PO DAILY esomeprazole magnesium 40 mg capsule,delayed release(DR/EC) 40 mg PO DAILY losartan 25 mg tablet 25 mg PO QHS Referrals / Follow Up: JENNI HERNANDEZ [Other] - Within 1 Week NOT,DEFINED [Non-Staff, None] Disposition Disposition (needs filled in before D/C Order can be placed): Home, Self Care Charges/Coding Visit Charges Inpatient E&M: 78855 Disch Hosp >30min
== END 2025-06-15 09:00 | disposition home or self-care (01) | DRG 440 ==
LOC: ED 23:47 → MS3 23:54
PROVIDERS: Admitting Provider Family Medicine; Emergency Provider Emergency Medicine; Visit Provider Student in an Organized Health Care Education/Training Program
DX: K85.90 Acute pancreatitis without necrosis or infection, unspecified (principal); D72.829 Elevated white blood cell count, unspecified; I10 Essential (primary) hypertension; E66.812 Obesity, class 2; K29.70 Gastritis, unspecified, without bleeding; K21.9 Gastro-esophageal reflux disease without esophagitis; Z68.36 Body mass index [BMI] 36.0-36.9, adult; Z87.891 Personal history of nicotine dependence; Z90.49 Acquired absence of other specified parts of digestive tract
CPT/HCPCS: 36415; 71275; 74177; 74181; 80048; 80053; 80061; 82077; 83690; 84484; 85025; 93005; 94668; 99284; Q9967; A4216; J2405